=== PATIENT | female | born 1985 | race Caucasian/White ===

== ENCOUNTER 2017-04-07 22:34 | Inpatient (IN) | payer BC ==
[2017-04-08] MEDS ORDERED: Lactated Ringers 1,000 ML IV ONE ×3 (00:41→12:08)
[2017-04-08] MEDS ORDERED: Sodium Chloride 0.9% 10 ML Syringe FLUSH PRN (00:42)
[2017-04-08] MEDS: Lactated Ringers 1,000 ML IV SCH ×4 (02:02→21:20)
[2017-04-08] MEDS ORDERED: Citric Acid/Sodium Citrate Solution 30 ML Cup ONE (03:14)
[2017-04-08] MEDS ORDERED: Citric Acid/Sodium Citrate Solution 30 ML Cup PO ONE (03:15)
[2017-04-08] MEDS ORDERED: Scopolamine 1.5 MG Transdermal Patch TOP ONE (03:15)
[2017-04-08] MEDS ORDERED: Scopolamine 1.5 MG Transdermal Patch ONE (03:16)
--- NOTE | 2017-04-08 03:35 | PCM.LDHP ---
L&D History of Present Illness - General Date of Service: 04/08/17 Admit Problem/Dx: Patient Status Order with Admit Dx/Problem 04/07/17 22:40 Patient Status [ADT] Routine 04/08/17 01:16 Admission Status [Patient Status] [ADT] Routine Admission Diagnosis/Problem Admission Diagnosis/Problem Source of Information: Patient History Limitations: Reports: No Limitations - History of Present Illness Introduction:: 31 you primigravida who presented with uterine contractions/labor. Location, : Reports: Abdomen Quality: Reports: Sharp Severity: Moderate Improves with: Reports: None Worsens with: Reports: None Associated Symptoms: Denies: vaginal bleeding, vaginal tissue - Related Data Allergies/Adverse Reactions: Allergies Allergy/AdvReac Type Severity Reaction Status Date / Time No Known Allergies Allergy Verified 04/08/17 00:09 Home Medications: Home Meds Pnv No.122/Iron/Folic Acid [ Multi Tablet] 1 each PO DAILY 04/08/17 [ History] Ibuprofen [IJD: Ibuprofen] 600 mg PO Q6H PRN tablet 04/10/17 [Rx] Past Medical History [employer] History: Reports: Other OB/BYN History: g1 - Past Surgical History Other HEENT Surgeries/Procedures: wears glasses Social & Family History - Family History Family Medical History: Noncontributory - Tobacco Use Smoking Status *Q: Former Smoker Years of Tobacco use: 10 Packs/Tins Daily: 0.5 Used Tobacco, but Quit: Yes Month Tobacco Last Used: 03/2014 Second Hand Smoke Exposure: No - Caffeine Use Caffeine Use: Reports: Soda - Recreational Drug Use Recreational Drug Use: No H&P Review of Systems - Review of Systems: Review Of Systems: ROS reveals no pertinent complaints other than HPI. L&D Exam - Exam Exam: See Below - Vital Signs Vital Signs: Last Vital Signs Temp Pulse 84 04/07/17 23:00 Resp 18 04/07/17 23:00 BP 136/81 04/07/17 23:00 Pulse Ox Weight: 74.843 kg - OB Specific Contraction Duration (sec): 90 Contraction Frequency (min): 4 Contraction Intensity: Moderate - Carpenter Score Carpenter Score Cervix Position: Midposition Carpenter Score Consistency: Soft Carpenter Score Dilation: 1-2 cm Carpenter Score Infant's Station: -2 - Exam General: Alert, Oriented HEENT: PERRLA, Conjunctiva Clear, EACs Clear, EOMI, Hearing Intact, Mucosa Moist & [place], Nares Patent, Normal Nasal Septum, Posterior Pharynx Clear, TMs Clear Neck: Supple, Trachea Midline Lungs: Clear to Auscultation, Normal Respiratory Effort Cardiovascular: Regular Rate, Regular Rhythm GI/Abdominal Exam: Normal Bowel Sounds, Soft, Non-Tender, No Organomegaly, No Distention, No Abnormal Bruit, No Mass, Pelvis Stable Rectal Exam: Normal Exam, Normal Rectal Tone Genitourinary: Normal external exam, Normal bimanual exam, Normal speculum exam Back Exam: Normal Inspection, Full Range of Motion Extremities: Normal Inspection, Normal Range of Motion, Non-Tender, No Pedal Edema, Normal Capillary Refill Skin: Warm, Dry, Intact Neurological: Cranial Nerves Intact, Reflexes Equal Bilateral Psychiatric: Alert, Normal Affect, Normal Mood - Patient Data Result Diagrams: 04/09/17 06:20 - Problem List (1) Labor abnormality SNOMED Code(s): 33514598 ICD Code: O62.9 - ABNORMALITY OF FORCES OF LABOR, UNSPECIFIED Status: Acute (2) Non-reassuring electronic monitoring tracing SNOMED Code(s): 262341317 ICD Code: O76 - ABNLT IN HEART RATE AND RHYTHM COMP LABOR AND DELIVERY Status: Acute Problem List Initiated/Reviewed/Updated: Yes Orders Last 24hrs: Active Orders 24 hr Category Date Time Status Admission Status [Patient Status] [ADT] Routine ADT 04/08/17 01:16 Active Patient Status [ADT] Routine ADT 04/07/17 22:40 Active CBC WITH AUTO DIFF [HEME] Routine Lab 04/08/17 03:15 Received TYPE AND SCREEN [BBK] Routine Lab 04/08/17 03:15 Received Lactated Ringers [Ringers, Lactated] 1,000 ml Med 04/08/17 02:00 Active IV ASDIRECTED Sodium Chloride 0.9% [Saline Flush] Med 04/08/17 00:42 Active 10 ml FLUSH ASDIRECTED PRN EFM External w TOCO [Electronic Heart Tones Ext w Oth 04/08/17 00:41 Ordered TOCO] [WOMSER] Routine Peripheral IV Insertion Adult [OM.PC] Routine Oth 04/08/17 00:42 Ordered Resuscitation Status Routine Resus Stat 04/07/17 22:40 Ordered Medication Orders Lactated Ringer's (Ringers, Lactated) 1,000 mls @ 150 mls/hr IV ASDIRECTED RAYMON Last Admin: 04/08/17 02:02 Dose: 150 mls/hr Sodium Chloride (Saline Flush) 10 ml FLUSH ASDIRECTED PRN PRN Reason: Keep Vein Open Last Admin: 04/08/17 00:58 Dose: 10 ml Assessment/Plan Comment:: Recurrent prolonged late decelerations,has not responded to coservative measures. Will proceed to C section
--- NOTE | 2017-04-08 03:40 | PCM.SN ---
- Free Text/Narrative Note: wf who is for c section for decelerations. risks of procedure explained to the pt to include bleeding, infection injury to bowel bladder and blood vessel. she expressed understanding and asks us to proceed.
[2017-04-08] MEDS ORDERED: Oxytocin 10 Units/1 ML SDV IV ONE (03:45)
[2017-04-08] MEDS ORDERED: ePHEDrine 50 MG/ML SDV IV ONE (03:45)
[2017-04-08] MEDS ORDERED: ceFAZolin 1 GM Vial IV ONE (03:45)
[2017-04-08] MEDS ORDERED: Ondansetron 4 MG/2 ML SDV IVPUSH ONE (03:45)
[2017-04-08] MEDS ORDERED: Ketorolac 30 MG/ML SDV IVPUSH ONE (03:45)
[2017-04-08] MEDS ORDERED: Naloxone 0.4 MG/ML SDV IVPUSH PRN ×2 (04:45→04:49)
[2017-04-08] MEDS ORDERED: diphenhydrAMINE 50 MG/ML SDV IVPUSH PRN ×2 (04:45→04:49)
[2017-04-08] MEDS ORDERED: ePHEDrine 50 MG/ML SDV IVPUSH PRN ×2 (04:45→04:49)
--- NOTE | 2017-04-08 04:45 | PCM.OPNOTE ---
- General Post-Op/Procedure Note Date of Surgery/Procedure: 04/08/17 Operative Procedure(s): c section Findings: term male infant apgars 9/9 ROT presentation Pre Op Diagnosis: late decelerations Post-Op Diagnosis: Same Anesthesia Technique: Spinal Primary Surgeon: Delta Christianson Secondary Surgeon: Krishna Kowalski Anesthesia Provider: Heaven Crawford Pathology: placenta and cord EBL in mLs: 500 Complications: None Condition: Good Free Text/Narrative:: Intake & Output 04/07/17 04/07/17 04/08/17 14:59 22:59 06:59 Intake Total 1200 Output Total 500 Balance 700 see dictation [id number]
[2017-04-08] MEDS ORDERED: Ketorolac 30 MG/ML SDV IVPUSH PRN (04:49)
--- NOTE | 2017-04-08 10:00 | OR ---
DATE OF OPERATION: 04/08/2017 SURGEON: Delta Christianson MD PROCEDURE PERFORMED: section. PREOPERATIVE DIAGNOSIS: Term with late decelerations. POSTOPERATIVE DIAGNOSIS: Term with late decelerations. INDICATIONS FOR PROCEDURE: This is a 31-year-old white female, who is a G1, P0, at the time of presentation at 40.2 weeks gestation, who presented earlier this evening in labor due to decelerations. section was determined to be necessary by Dr. Kowalski. INTRAOPERATIVE FINDINGS: A term male . ROT presentation with score of 9 and 9 was delivered without difficulty. ESTIMATED BLOOD LOSS: Approximately 500 mL. DESCRIPTION OF OPERATION: After an excellent spinal anesthetic was administered, the patient was prepped and draped in usual sterile manner. An incision was made approximately 2 fingerbreadths above the symphysis pubis. Using a #10 scalpel blade, the underlying subcu fat was divided using electrocautery in the fascia. The anterior abdominal wall was exposed. This was divided as well using electrocautery by exposing the rectus muscles as well as dividing the external oblique muscles laterally. The flaps were raised by placing lady goiter clamps on the superior flap and using sharp and electrocautery re-dissection to raise her flap to the level of the umbilicus. The process was repeated inferiorly. Perineum was grasped, incised and divided. Bladder flap was raised using sharp dissection. An incision was then made through the uterus and clear amniotic fluid was encountered. The incision was bluntly extended laterally on both sides. The child was noted to be presenting with a ROT presentation. The head was delivered and the anterior shoulder, posterior shoulder and then the rest of the . The was then suctioned. The cord was clamped, divided, and the child was passed off the field. Cord blood was obtained and then the placenta was delivered and passed off the field as well. The uterus was closed in two layers with #1 Vicryl, first layer being a simple locking suture followed by a running Lembert suture which demonstrated excellent hemostasis and after irrigating the pouch of [place] and two lateral gutters, uterus was returned to the normal anatomic position. The fascia was then closed with a running 0 Vicryl. The skin was closed with a running #3-0 Vicryl. Steri-Strips were applied. Needle, sponge, and instrument counts were reported as correct. The patient was taken to recovery room in good condition. /[id number] /MODL
--- NOTE | 2017-04-08 16:42 | PCM.SN ---
- Free Text/Narrative Note: A little sore. other antunez no issue. did need a fluid bolus. has had good urine output since. lungs cta heart rrr abd dressing dry. hypoactive bowel sounds. assess unremarkable post op exam. continue current rx.
[2017-04-09] MEDS ORDERED: Remove SCOP Patch TRDERM ONE (04:00)
[2017-04-09] MEDS: Lactated Ringers 1,000 ML IV SCH (04:58)
--- NOTE | 2017-04-09 11:17 | PCM.PNPP ---
- General Info Date of Service: 04/09/17 Functional Status: Reports: Pain Controlled, Tolerating Diet, Ambulating, Urinating - Review of Systems HEENT: Reports: Headaches Pulmonary: Reports: No Symptoms Cardiovascular: Reports: No Symptoms Gastrointestinal: Reports: Abdominal Pain, Flatus Skin: Reports: No Symptoms - Patient Data Vital Signs - Most Recent: Last Vital Signs Temp 36.6 C 04/09/17 08:23 Pulse 89 04/09/17 08:23 Resp 16 04/09/17 08:23 BP 107/69 04/09/17 08:23 Pulse Ox 97 04/09/17 08:23 Weight - Most Recent: 74.843 kg I&O - Last 24 Hours: Intake & Output 04/08/17 04/09/17 04/09/17 22:59 06:59 14:59 Intake Total 1090 1270 Output Total 850 2950 650 Balance 240 -1440 -650 Lab Results - Last 24 Hours: Laboratory Results - last 24 hr 04/09/17 Range/Units 06:20 WBC 12.0 (4.5-12.0) X10-3/uL RBC 3.39 (3.23-5.20) x10(6)uL Hgb 9.4 L (11.5-15.5) g/dL Hct 27.5 L (30.0-51.3) % MCV 81.2 (80-96) fL MCH 27.7 (27.7-33.6) pg MCHC 34.1 (32.2-35.4) g/dL RDW 13.3 (11.5-15.5) % Plt Count 209 (125-369) X10(3)uL MPV 8.6 (7.4-10.4) fL Neut % (Auto) 77.7 (46-82) % Lymph % (Auto) 13.8 (13-37) % [place] % (Auto) 7.3 (4-12) % Eos % (Auto) 1 (1.0-5.0) % Baso % (Auto) 1 (0-2) % Neut # (Auto) 9.2 H (1.6-8.3) # Lymph # (Auto) 1.6 (0.6-5.0) # [place] # (Auto) 0.9 (0.0-1.3) # Eos # (Auto) 0.1 (0.0-0.8) # Baso # (Auto) 0.1 (0.0-0.2) # Med Orders - Current: Current Medications Diphenhydramine HCl (Benadryl) 25 mg IVPUSH Q6H PRN PRN Reason: Itching or Nausea Last Admin: 04/08/17 06:57 Dose: 25 mg Ephedrine Sulfate (Ephedrine Sulfate) 5 mg IVPUSH ASDIRECTED PRN PRN Reason: Other Lactated Ringer's (Ringers, Lactated) 1,000 mls @ 125 mls/hr IV ASDIRECTED RAYMON Last Admin: 04/09/17 04:58 Dose: 150 mls/hr Naloxone HCl (Narcan) 0.1 mg IVPUSH ONETIME PRN PRN Reason: Respiratory Depression Sodium Chloride (Saline Flush) 10 ml FLUSH ASDIRECTED PRN PRN Reason: Keep Vein Open Last Admin: 04/08/17 00:58 Dose: 10 ml Discontinued Medications Cefazolin Sodium (Ancef) 2 gm IV .STK-MED ONE Stop: 04/08/17 03:46 Citric Acid/Sodium Citrate (Bicitra Solution) Confirm Administered Dose 30 ml .ROUTE .STK-MED ONE Stop: 04/08/17 03:15 Last Admin: 04/08/17 03:25 Dose: 30 ml Citric Acid/Sodium Citrate (Bicitra Solution) 30 ml PO ONETIME ONE Stop: 04/08/17 03:16 Last Admin: 04/08/17 03:20 Dose: 30 ml Diphenhydramine HCl (Benadryl) 25 mg IVPUSH Q6H PRN PRN Reason: Itching or Nausea Ephedrine Sulfate (Ephedrine Sulfate) 5 mg IVPUSH ASDIRECTED PRN PRN Reason: Other Ephedrine Sulfate (Ephedrine Sulfate) 20 mg IV .STK-MED ONE Stop: 04/08/17 03:46 Lactated Ringer's (Ringers, Lactated) 1,000 mls @ 999 mls/hr IV BOLUS ONE Stop: 04/08/17 01:41 Last Admin: 04/08/17 01:00 Dose: 999 mls/hr Lactated Ringer's (Ringers, Lactated) 1,000 mls @ 999 mls/hr IV BOLUS ONE Stop: 04/08/17 13:08 Last Admin: 04/08/17 12:13 Dose: 999 mls/hr Lactated Ringer's (Ringers, Lactated) 1,000 mls @ as directed IV .STK-MED ONE Stop: 04/08/17 03:46 Ketorolac Tromethamine (Toradol) 30 mg IVPUSH Q8H PRN PRN Reason: Abdominal Pain Stop: 04/13/17 04:50 Last Admin: 04/09/17 05:05 Dose: 30 mg Ketorolac Tromethamine (Toradol) 30 mg IVPUSH .STK-MED ONE Stop: 04/08/17 03:46 Miscellaneous Information (Remove Patch) 1 ea TRDERM ONETIME ONE Stop: 04/09/17 04:01 Last Admin: 04/09/17 04:10 Dose: 1 ea Naloxone HCl (Narcan) 0.1 mg IVPUSH ONETIME PRN PRN Reason: Respiratory Depression Ondansetron HCl (Zofran) 4 mg IVPUSH .STK-MED ONE Stop: 04/08/17 03:46 Oxytocin (Pitocin) 20 unit IV .STK-MED ONE Stop: 04/08/17 03:46 Scopolamine (Transderm-Scop) Confirm Administered Dose 1.5 mg .ROUTE .STK-MED ONE Stop: 04/08/17 03:17 Last Admin: 04/08/17 03:25 Dose: 1.5 mg Scopolamine (Transderm-Scop) 1.5 mg TOP ONETIME ONE Stop: 04/08/17 03:16 Last Admin: 04/08/17 03:25 Dose: 1.5 mg - Infant Interaction Infant Disposition, : in Room with Family Support Person: - Recovery Exam Fundal Tone: Firm Fundal Level: 1 Fingerbreadths Below Umbilicus Fundal Placement: Midline Lochia Amount: Moderate Lochia Color: Rubra/Red Perineum Description: Intact, Minimal Bruising/Swelling Episiotomy/Laceration: None Bladder Status: Indwelling Catheter in Place Urinary Elimination: Indwelling Catheter - Exam General: Alert, Oriented, Cooperative, No Acute Distress Lungs: Clear to Auscultation, Normal Respiratory Effort Cardiovascular: Regular Rate, Regular Rhythm GI/Abdominal Exam: Normal Bowel Sounds, Soft, Tender (along the incision) Skin: Warm, Dry, Intact, Cool Wound/Incisions: Healing Well. No: Erythema - Problem List & Annotations (1) delivery delivered SNOMED Code(s): 558377769 Code(s): O82 - ENCOUNTER FOR DELIVERY WITHOUT INDICATION Status: Acute Current Visit: Yes - Problem List Review Problem List Initiated/Reviewed/Updated: Yes - My Orders Last 24 Hours: My Active Orders 04/09/17 09:52 DC Acuna Catheter [Urinary Catheter Removal] [RC] Per Unit Routine 04/09/17 09:53 Communication Order [RC] ROUTINE 04/09/17 11:07 Ibuprofen [Motrin] 600 mg PO Q6H PRN Convert IV to Saline Lock [OM.PC] Routine 04/09/17 Lunch Full Liquid Diet [DIET] - Plan Plan:: will advance the diet saline lock iv oral pain medication.
[2017-04-09] MEDS: Ibuprofen 600 MG Tab PO PRN ×2 (16:05→21:41)
[2017-04-10 01:00] VITALS: BP 121/82
[2017-04-10] MEDS: Ibuprofen 600 MG Tab PO PRN ×2 (08:46→14:31)
[2017-04-10] MEDS ORDERED: Bisacodyl 10 MG Supp RECTAL ONE (09:50)
--- NOTE | 2017-04-10 09:54 | PCM.PNPP ---
- General Info Date of Service: 04/10/17 - Review of Systems HEENT: Reports: No Symptoms Pulmonary: Reports: No Symptoms Cardiovascular: Reports: No Symptoms Gastrointestinal: Reports: Flatus, Other (still no bowel movements tolerating diet ) - Patient Data Vital Signs - Most Recent: Last Vital Signs Temp 36.7 C 04/10/17 00:00 Pulse 82 04/10/17 00:00 Resp 18 04/10/17 00:00 BP 121/82 04/10/17 00:00 Pulse Ox 98 04/10/17 00:00 Weight - Most Recent: 74.843 kg I&O - Last 24 Hours: Intake & Output 04/09/17 04/10/17 04/10/17 22:59 06:59 14:59 Intake Total 500 500 Output Total 1000 1000 Balance -500 -500 Med Orders - Current: Current Medications Diphenhydramine HCl (Benadryl) 25 mg IVPUSH Q6H PRN PRN Reason: Itching or Nausea Last Admin: 04/08/17 06:57 Dose: 25 mg Ephedrine Sulfate (Ephedrine Sulfate) 5 mg IVPUSH ASDIRECTED PRN PRN Reason: Other Ibuprofen (Motrin) 600 mg PO Q6H PRN PRN Reason: Pain Last Admin: 04/10/17 08:46 Dose: 600 mg Naloxone HCl (Narcan) 0.1 mg IVPUSH ONETIME PRN PRN Reason: Respiratory Depression Sodium Chloride (Saline Flush) 10 ml FLUSH ASDIRECTED PRN PRN Reason: Keep Vein Open Last Admin: 04/08/17 00:58 Dose: 10 ml Discontinued Medications Cefazolin Sodium (Ancef) 2 gm IV .STK-MED ONE Stop: 04/08/17 03:46 Citric Acid/Sodium Citrate (Bicitra Solution) Confirm Administered Dose 30 ml .ROUTE .STK-MED ONE Stop: 04/08/17 03:15 Last Admin: 04/08/17 03:25 Dose: 30 ml Citric Acid/Sodium Citrate (Bicitra Solution) 30 ml PO ONETIME ONE Stop: 04/08/17 03:16 Last Admin: 04/08/17 03:20 Dose: 30 ml Diphenhydramine HCl (Benadryl) 25 mg IVPUSH Q6H PRN PRN Reason: Itching or Nausea Ephedrine Sulfate (Ephedrine Sulfate) 5 mg IVPUSH ASDIRECTED PRN PRN Reason: Other Ephedrine Sulfate (Ephedrine Sulfate) 20 mg IV .STK-MED ONE Stop: 04/08/17 03:46 Lactated Ringer's (Ringers, Lactated) 1,000 mls @ 999 mls/hr IV BOLUS ONE Stop: 04/08/17 01:41 Last Admin: 04/08/17 01:00 Dose: 999 mls/hr Lactated Ringer's (Ringers, Lactated) 1,000 mls @ 125 mls/hr IV ASDIRECTED RAYMON Last Admin: 04/09/17 04:58 Dose: 150 mls/hr Lactated Ringer's (Ringers, Lactated) 1,000 mls @ 999 mls/hr IV BOLUS ONE Stop: 04/08/17 13:08 Last Admin: 04/08/17 12:13 Dose: 999 mls/hr Lactated Ringer's (Ringers, Lactated) 1,000 mls @ as directed IV .STK-MED ONE Stop: 04/08/17 03:46 Ketorolac Tromethamine (Toradol) 30 mg IVPUSH Q8H PRN PRN Reason: Abdominal Pain Stop: 04/13/17 04:50 Last Admin: 04/09/17 05:05 Dose: 30 mg Ketorolac Tromethamine (Toradol) 30 mg IVPUSH .STK-MED ONE Stop: 04/08/17 03:46 Miscellaneous Information (Remove Patch) 1 ea TRDERM ONETIME ONE Stop: 04/09/17 04:01 Last Admin: 04/09/17 04:10 Dose: 1 ea Naloxone HCl (Narcan) 0.1 mg IVPUSH ONETIME PRN PRN Reason: Respiratory Depression Ondansetron HCl (Zofran) 4 mg IVPUSH .STK-MED ONE Stop: 04/08/17 03:46 Oxytocin (Pitocin) 20 unit IV .STK-MED ONE Stop: 04/08/17 03:46 Scopolamine (Transderm-Scop) Confirm Administered Dose 1.5 mg .ROUTE .STK-MED ONE Stop: 04/08/17 03:17 Last Admin: 04/08/17 03:25 Dose: 1.5 mg Scopolamine (Transderm-Scop) 1.5 mg TOP ONETIME ONE Stop: 04/08/17 03:16 Last Admin: 04/08/17 03:25 Dose: 1.5 mg - Infant Interaction Disposition, : [place] in Room with Family Support Person: - Recovery Exam Fundal Tone: Firm Fundal Level: 1 Fingerbreadths Below Umbilicus Fundal Placement: Midline Lochia Amount: Small Lochia Color: Rubra/Red Perineum Description: Intact, Minimal Bruising/Swelling Episiotomy/Laceration: None Bladder Status: Voiding Urinary Elimination: Voided - Exam General: Alert, Oriented, Cooperative, No Acute Distress Lungs: Clear to Auscultation, Normal Respiratory Effort Cardiovascular: Regular Rate, Regular Rhythm GI/Abdominal Exam: Normal Bowel Sounds, Soft, Non-Tender Skin: Warm, Dry, Intact Wound/Incisions: Healing Well - Problem List & Annotations (1) delivery delivered SNOMED Code(s): 238800783 Code(s): O82 - ENCOUNTER FOR DELIVERY WITHOUT INDICATION Status: Acute Current Visit: Yes - Problem List Review Problem List Initiated/Reviewed/Updated: Yes - My Orders Last 24 Hours: My Active Orders 04/09/17 09:52 DC Acuna Catheter [Urinary Catheter Removal] [RC] Per Unit Routine 04/09/17 09:53 Communication Order [RC] ROUTINE 04/09/17 11:07 Ibuprofen [Motrin] 600 mg PO Q6H PRN Convert IV to Saline Lock [OM.PC] Routine 04/09/17 Lunch Full Liquid Diet [DIET] 04/10/17 09:50 Bisacodyl [Dulcolax] 10 mg RECTAL ONETIME ONE 04/10/17 Lunch Regular Diet [DIET] - Assessment Assessment:: pod#2 doing well - Plan Plan:: will advance the diet dulcolax suppository anticipate d/c in this afternoon.
--- NOTE | 2017-04-10 13:13 | PCM.DCSUM1 ---
Discharge Summary - Hospital Course Free Text/Narrative:: Pt admitted and taken to the OR for C section due to decelerations. post op course was unremarkable. She demonstrated excellent pain control, and her diet was quickly advanced. she was tolerating regular diet on POD2 and was having bowel movements as well. - Discharge Data Discharge Date: 04/10/17 Discharge Disposition: Home, Self-Care 01 Condition: Good - Discharge Diagnosis/Problem(s) (1) delivery delivered SNOMED Code(s): 215406451 ICD Code: O82 - ENCOUNTER FOR DELIVERY WITHOUT INDICATION Status: Acute Current Visit: Yes - Patient Summary/Data Operative Procedure(s) Performed: c section - Patient Instructions Diet: Usual Diet as Tolerated, No Alcoholic Beverages Activity: No Lifting Over 25 Pounds, No Strenuous Activities, Rest and Relax Today Driving: Do Not Drive (for 7 days ) Showering/Bathing: May Shower, No Tub Bathing/Swimming Notify Provider of: Increased Pain, Swelling and Redness, Drainage - Discharge Plan Home Medications: Home Meds Pnv No.122/Iron/Folic Acid [ Multi Tablet] 1 each PO DAILY 04/08/17 [ History] Ibuprofen [IJD: Ibuprofen] 600 mg PO Q6H PRN tablet 04/10/17 [Rx] Patient Handouts: , Mastitis, Yyny-al-Pryr, Depression and Baby Blues, Delivery, Care After, [place] Baby Care, Care After Delivery, Challenges and Solutions, Hand Washing Referrals: Delta Christianson MD [Physician] - (7-10 days ) - Discharge Summary/Plan Comment DC Time >30 min.: No - Patient Data Vitals - Most Recent: Last Vital Signs Temp 36.7 C 04/10/17 00:00 Pulse 82 04/10/17 00:00 Resp 18 04/10/17 00:00 BP 121/82 04/10/17 00:00 Pulse Ox 98 04/10/17 00:00 Weight - Most Recent: 74.843 kg I&O - Last 24 hours: Intake & Output 04/09/17 04/10/17 04/10/17 22:59 06:59 14:59 Intake Total 500 500 Output Total 1000 1000 Balance -500 -500 Med Orders - Current: Current Medications Diphenhydramine HCl (Benadryl) 25 mg IVPUSH Q6H PRN PRN Reason: Itching or Nausea Last Admin: 04/08/17 06:57 Dose: 25 mg Ephedrine Sulfate (Ephedrine Sulfate) 5 mg IVPUSH ASDIRECTED PRN PRN Reason: Other Ibuprofen (Motrin) 600 mg PO Q6H PRN PRN Reason: Pain Last Admin: 04/10/17 08:46 Dose: 600 mg Naloxone HCl (Narcan) 0.1 mg IVPUSH ONETIME PRN PRN Reason: Respiratory Depression Sodium Chloride (Saline Flush) 10 ml FLUSH ASDIRECTED PRN PRN Reason: Keep Vein Open Last Admin: 04/08/17 00:58 Dose: 10 ml Discontinued Medications Bisacodyl (Dulcolax) 10 mg RECTAL ONETIME ONE Stop: 04/10/17 09:51 Last Admin: 04/10/17 10:14 Dose: 10 mg Cefazolin Sodium (Ancef) 2 gm IV .STK-MED ONE Stop: 04/08/17 03:46 Citric Acid/Sodium Citrate (Bicitra Solution) Confirm Administered Dose 30 ml .ROUTE .STK-MED ONE Stop: 04/08/17 03:15 Last Admin: 04/08/17 03:25 Dose: 30 ml Citric Acid/Sodium Citrate (Bicitra Solution) 30 ml PO ONETIME ONE Stop: 04/08/17 03:16 Last Admin: 04/08/17 03:20 Dose: 30 ml Diphenhydramine HCl (Benadryl) 25 mg IVPUSH Q6H PRN PRN Reason: Itching or Nausea Ephedrine Sulfate (Ephedrine Sulfate) 5 mg IVPUSH ASDIRECTED PRN PRN Reason: Other Ephedrine Sulfate (Ephedrine Sulfate) 20 mg IV .STK-MED ONE Stop: 04/08/17 03:46 Lactated Ringer's (Ringers, Lactated) 1,000 mls @ 999 mls/hr IV BOLUS ONE Stop: 04/08/17 01:41 Last Admin: 04/08/17 01:00 Dose: 999 mls/hr Lactated Ringer's (Ringers, Lactated) 1,000 mls @ 125 mls/hr IV ASDIRECTED RAYMON Last Admin: 04/09/17 04:58 Dose: 150 mls/hr Lactated Ringer's (Ringers, Lactated) 1,000 mls @ 999 mls/hr IV BOLUS ONE Stop: 04/08/17 13:08 Last Admin: 04/08/17 12:13 Dose: 999 mls/hr Lactated Ringer's (Ringers, Lactated) 1,000 mls @ as directed IV .STK-MED ONE Stop: 04/08/17 03:46 Ketorolac Tromethamine (Toradol) 30 mg IVPUSH Q8H PRN PRN Reason: Abdominal Pain Stop: 04/13/17 04:50 Last Admin: 04/09/17 05:05 Dose: 30 mg Ketorolac Tromethamine (Toradol) 30 mg IVPUSH .STK-MED ONE Stop: 04/08/17 03:46 Miscellaneous Information (Remove Patch) 1 ea TRDERM ONETIME ONE Stop: 04/09/17 04:01 Last Admin: 04/09/17 04:10 Dose: 1 ea Naloxone HCl (Narcan) 0.1 mg IVPUSH ONETIME PRN PRN Reason: Respiratory Depression Ondansetron HCl (Zofran) 4 mg IVPUSH .STK-MED ONE Stop: 04/08/17 03:46 Oxytocin (Pitocin) 20 unit IV .STK-MED ONE Stop: 04/08/17 03:46 Scopolamine (Transderm-Scop) Confirm Administered Dose 1.5 mg .ROUTE .STK-MED ONE Stop: 04/08/17 03:17 Last Admin: 04/08/17 03:25 Dose: 1.5 mg Scopolamine (Transderm-Scop) 1.5 mg TOP ONETIME ONE Stop: 04/08/17 03:16 Last Admin: 04/08/17 03:25 Dose: 1.5 mg *Q Meaningful Use (DIS) - VTE *Q VTE Criteria *Q: - Stroke *Q Stroke Criteria *Q: - AMI *Q AMI Criteria *Q:
== END 2017-04-10 14:45 | disposition home or self-care (01) | DRG 540 ==
LOC: FB.OBCHECK 22:34 → FB.OB 22:35 → FB.OBCHECK 04-08 01:16
PROVIDERS: ADMIT Surgery; ATTEND Surgery
PROC: 10D00Z1 Extraction of Products of Conception, Low, Open Approach (ICD-10-PCS; principal; 2017-04-08)
DX: O76 Abnormality in fetal heart rate and rhythm complicating labor and delivery (principal); Z3A.40 40 weeks gestation of pregnancy; Z37.0 Single live birth
CPT/HCPCS: 36415; 85025; 86850; 86900; 86901; 88307; A9270-GY; J0690; J1200; J1885; J2405; J2590; J7050; J7120